=== PATIENT | female | born 1945 | race American Indian/Alaskan Native ===

== ENCOUNTER 2018-01-17 06:22 | Inpatient (IN) | payer MEDICARE ==
[2017-12-21 09:43] VITALS: BMI 26.5
[2018-01-17] MEDS ORDERED: Bupivacaine Liposomal Inj 20 ml INFIL ONE (07:21)
--- NOTE | 2018-01-17 07:27 | CP.PCM.HP ---
History of Present Illness - History of Present Illness History of Present Illness: 73 F with pmhx of hypertension and right hip osteoarthritis who failed conservative management, elected for a right total hip replacement NKDA No hx of PA, stents, blood clots, or bleeding disorders Present on Admission - Present on Admission Any Indicators Present on Admission: No History of DVT/PE: No History of Uncontrolled Diabetes: No Past Patient History - Past Medical History & Family History Past Medical History?: Yes - Past Social History Smoking Status: Never Smoked - CARDIAC Hx Cardiac Disorders: Yes Hx Hypertension: Yes - PULMONARY Hx Respiratory Disorders: No - NEUROLOGICAL Hx Neurological Disorder: No - HEENT Hx HEENT Problems: No - RENAL Hx Chronic Kidney Disease: No - ENDOCRINE/METABOLIC Hx Endocrine Disorders: No - HEMATOLOGICAL/ONCOLOGICAL Hx Blood Disorders: No - INTEGUMENTARY Hx Dermatological Problems: No - MUSCULOSKELETAL/RHEUMATOLOGICAL Hx Musculoskeletal Disorders: Yes Hx Osteoarthritis: Yes - GASTROINTESTINAL Hx Gastrointestinal Disorders: No - GENITOURINARY/GYNECOLOGICAL Hx Genitourinary Disorders: No - PSYCHIATRIC Hx Psychophysiologic Disorder: No - SURGICAL HISTORY Hx Surgeries: No - ANESTHESIA Hx Anesthesia: No Has any member of the family had a problem w/ anesthesia?: No Meds Allergies/Adverse Reactions: Allergies Allergy/AdvReac Type Severity Reaction Status Date / Time No Known Allergies Allergy Verified 12/21/17 09:40 Physical Exam - Constitutional Appears: Well, Non-toxic, No Acute Distress - Head Exam Head Exam: ATRAUMATIC, NORMAL INSPECTION, NORMOCEPHALIC - Neck Exam Neck exam: Positive for: Full Rom, Normal Inspection - Respiratory Exam Respiratory Exam: NORMAL BREATHING PATTERN - Cardiovascular Exam Cardiovascular Exam: RRR - Expanded Lower Extremities Exam Right Hip exam: normal inspection (Calf and thigh are soft and nontender to palpation. NVI distally ) - Neurological Exam Neurological exam: CN II-XII Intact, Normal Gait, Oriented x3 - Psychiatric Exam Psychiatric exam: Normal Affect, Normal Mood - Skin Skin Exam: Dry, Intact, Normal Color, Warm Assessment & Plan (1) Osteoarthritis of right hip Assessment and Plan: NPO T&C OR for Right total hip replacement Patient medically optimized for surgery Risks benefits and alternatives discussed. Patient verbalizes understanding and would like to proceed Status: Acute (2) Hypertension Status: Chronic
[2018-01-17] MEDS ORDERED: Tranexamic Acid 1,000 MG in Sodium Chloride 0.9% 50 ML IV SCH (07:30)
[2018-01-17] MEDS ORDERED: Sodium Chloride 0.9% 1,000 ML IV SCH (07:30)
[2018-01-17] MEDS ORDERED: oxyCODONE 5 mg Immediate Release Tab PO PRN (07:33)
[2018-01-17] MEDS ORDERED: HYDROmorphone 0.5 mg/0.5 ml ISec IVP PRN (07:35)
[2018-01-17] MEDS ORDERED: ceFAZolin IV 1 gm in Dextrose 2 GM/100 ML BAG IVPB ONE (07:51)
[2018-01-17] MEDS ORDERED: Propofol 10 mg/ml Inj (20 ML) ONE (07:52)
[2018-01-17] MEDS ORDERED: Midazolam 2 MG/2 ML VIAL ONE (07:52)
[2018-01-17] MEDS ORDERED: Sodium Chloride 0.9% 60 ML IV ONE (08:52)
[2018-01-17] MEDS: Bacitracin 150,000 UNIT in Sodium Chloride 0.9% Irrig 3,000 ML IR SCH ×4 (09:17→09:26)
[2018-01-17] MEDS ORDERED: Rocuronium 10 mg/ml (5 ml) ONE (09:22)
[2018-01-17] MEDS ORDERED: ePHEDrine 50 mg/ml Inj ONE (09:52)
[2018-01-17] MEDS ORDERED: Succinylcholine Chloride 20 mg/ml Syr (5 ml) IV ONE (09:52)
[2018-01-17] MEDS ORDERED: Vancomycin 1 g Inj ONE (10:12)
[2018-01-17] MEDS ORDERED: Neostigmine Methylsulfate 3mg/3ml Syringe IV ONE (10:43)
--- NOTE | 2018-01-17 10:54 | PCM.SURG1 ---
Surgeon's Initial Post Op Note - Surgeon's Notes Surgeon: Frank Oakley MD Rotor Assembler: Kianna KEVIN, Nataliya KEVIN Type of Anesthesia: General Endo Anesthesia Administered By: Dr. Segura Pre-Operative Diagnosis: right hip DJD Operative Findings: post op +DP/PT pulses Post-Operative Diagnosis: same Operation Performed: right THR Specimen/Specimens Removed: femoral head Estimated Blood Loss: EBL {In ML}: 75 Blood Products Given: N/A Drains Used: No Drains Post-Op Condition: Fair Date of Surgery/Procedure: 01/17/18 Time of Surgery/Procedure: 10:53
[2018-01-17] MEDS: HYDROmorphone 0.5 mg/0.5 ml ISec IVP PRN ×3 (11:49→15:22)
--- NOTE | 2018-01-17 13:55 | RAD ---
Date of service: 01/17/2018 PROCEDURE: HISTORY: s/p THR pt in PACU COMPARISON: None TECHNIQUE: AP pelvis and frog's leg view. FINDINGS: Total right hip arthroplasty status noted. Two screws and superior acetabulum. Acetabular and femoral head and femoral stem components appear well seated well aligned. No hardware failure seen. Inferior lumbar facet hypertrophic arthrosis. Left hip arthrosis. Soft tissue lucencies and skin sutures compatible with recent postop status. IMPRESSION: Status post right total hip arthroplasty-hardware alignment appears anatomical. Hardware appears intact.
[2018-01-17] MEDS ORDERED: Sodium Chloride 0.9% 1,000 ML IV ONE ×2 (16:00→18:00)
[2018-01-17] MEDS: ceFAZolin 2 GM in Sodium Chloride 0.9% 50 ML IVPB SCH ×3 (16:14→23:52)
--- NOTE | 2018-01-17 17:13 | CP.PCM.CON ---
History of Present Illness - History of Present Illness History of Present Illness: Resident Consult Note for Hospitalist Service Patient is a 73 year old female with past medical history of hypertension and osteoarthritis admitted to the hospital for right total hip replacement. Hospitalist service was consulted for medical management. Patient states she had right hip pain that began approximately one year ago, and elected for surgery after failing conservative management with physical therapy. Patient denies pain or any other symptoms at this time. Denies fever, chills, nausea, vomiting, chest pain, shortness of breath, abdominal pain, diarrhea. PMH: hypertension, osteoarthritis PSH: right total hip replacement SHx: denies alcohol, tobacco, illicit drug use. Lives at home alone. Worked as a nurse. FHx: mother (HTN) Allergies: NKDA PMD: Dr. Carmona 12 point ROS was negative except as stated in HPI Review of Systems - Review of Systems All systems: reviewed and no additional remarkable complaints except (as stated in HPI) Past Patient History - Past Medical History & Family History Past Medical History?: Yes - Past Social History Smoking Status: Never Smoked Alcohol: Occasional Drugs: Denies Home Situation {Lives}: Alone - CARDIAC Hx Cardiac Disorders: Yes Hx Hypertension: Yes - PULMONARY Hx Respiratory Disorders: No - NEUROLOGICAL Hx Neurological Disorder: No - HEENT Hx HEENT Problems: No - RENAL Hx Chronic Kidney Disease: No - ENDOCRINE/METABOLIC Hx Endocrine Disorders: No - HEMATOLOGICAL/ONCOLOGICAL Hx Blood Disorders: No - INTEGUMENTARY Hx Dermatological Problems: No - MUSCULOSKELETAL/RHEUMATOLOGICAL Hx Musculoskeletal Disorders: Yes Hx Osteoarthritis: Yes - GASTROINTESTINAL Hx Gastrointestinal Disorders: No - GENITOURINARY/GYNECOLOGICAL Hx Genitourinary Disorders: No - PSYCHIATRIC Hx Psychophysiologic Disorder: No - SURGICAL HISTORY Hx Surgeries: No - ANESTHESIA Hx Anesthesia: No Has any member of the family had a problem w/ anesthesia?: No Meds Allergies/Adverse Reactions: Allergies Allergy/AdvReac Type Severity Reaction Status Date / Time No Known Allergies Allergy Verified 12/21/17 09:40 - Medications Medications: Current Medications Acetaminophen (Tylenol 325mg Tab) 650 mg PO Q6 [facility] Amlodipine Besylate (Norvasc) 5 mg PO DAILY [facility] Apixaban (Eliquis) 2.5 mg PO BID [facility] Docusate Sodium (Colace) 100 mg PO BID [facility] Enalapril Maleate (Vasotec) 20 mg PO DAILY [facility] Hydrochlorothiazide (Hydrodiuril) 25 mg PO DAILY [facility] Hydromorphone HCl (Dilaudid) 0.5 mg IVP Q4H PRN PRN Reason: Pain, severe (8-10) Sodium Chloride (Sodium Chloride 0.9%) 1,000 mls @ 80 mls/hr IV .[id number] [facility] Stop: 01/17/18 19:59 Cefazolin Sodium 2 gm/ Sodium (Chloride) 50 mls @ 100 mls/hr IVPB Q8H [facility] Stop: 01/18/18 00:29 Last Admin: 01/17/18 16:14 Dose: 50 mls Ondansetron HCl (Zofran Inj) 4 mg IVP ONCE PRN PRN Reason: Nausea/Vomiting Oxycodone HCl (Oxycodone Immediate Release Tab) 5 mg PO Q4 PRN PRN Reason: Pain, Mild (1-3) Oxycodone HCl (Oxycodone Immediate Release Tab) 10 mg PO Q4 PRN PRN Reason: Pain, moderate (4-7) Pregabalin (Lyrica) 50 mg PO BID [facility] Sennosides (Senokot Tab) 8.6 mg PO DAILY PRN PRN Reason: Constipation Physical Exam - Constitutional Appears: Non-toxic, No Acute Distress - Head Exam Head Exam: ATRAUMATIC, NORMOCEPHALIC - Eye Exam Eye Exam: EOMI, Normal appearance, PERRL - ENT Exam ENT Exam: Mucous Membranes Moist, Normal Exam - Neck Exam Neck exam: Negative for: Lymphadenopathy, Tenderness, Thyromegaly - Respiratory Exam Respiratory Exam: Clear to Auscultation Bilateral, NORMAL BREATHING PATTERN. absent: Accessory Muscle Use, Decreased Breath Sounds, Rales, Rhonchi, Wheezes, Respiratory Distress, Stridor - Cardiovascular Exam Cardiovascular Exam: REGULAR RHYTHM, +S1, +S2. absent: Systolic Murmur - GI/Abdominal Exam GI & Abdominal Exam: Normal Bowel Sounds, Soft. absent: Distended, Firm, Guarding, Rebound, Rigid, Tenderness - Exam Additional comments: bryan in place - Extremities Exam Extremities exam: Positive for: normal capillary refill, pedal pulses present. Negative for: pedal edema Additional comments: dressing over right hip C/D/I - Neurological Exam Neurological exam: Alert, CN II-XII Intact, Oriented x3 - Psychiatric Exam Psychiatric exam: Normal Affect, Normal Mood - Skin Skin Exam: Dry, Intact, Normal Color, Warm Results - Vital Signs Recent Vital Signs: Last Vital Signs Temp 97.4 F L 01/17/18 15:00 Pulse 90 01/17/18 16:30 Resp 13 01/17/18 16:30 BP 118/52 L 01/17/18 16:30 Pulse Ox 99 01/17/18 16:30 - Labs Labs: Laboratory Results - last 24 hr 01/17/18 08:21 Blood Type B POSITIVE Antibody Screen Negative Assessment & Plan - Assessment and Plan (Free Text) Assessment: Patient is a 73 year old female with past medical history of hypertension and osteoarthritis admitted to the hospital for right total hip replacement. Hospitalist service was consulted for medical management. Plan: s/p right total hip replacement - afebrile, hemodynamically stable - acetaminophen 650 mg PO Q6 - Eliquis 2.5 mg PO BID - Ancef 2 gm Q8H x2 - Colace 100 mg PO BID - Dilaudid 0.5 mg IV Q4H PRN - Oxycodone 10 mg PO Q4 PRn - Lyrica 50 mg PO BID - Senokot 8.6 mg PO daily PRN - Zofran 4 mg IVP PRN - NS 1 L - PT/OT eval - further recs per surgery team HTN - continue home meds - amlodipine 5 mg PO daily - Enalapril 20 mg PO daily - HCTZ 25 mg PO daily PPX - SCDs - Eliquis 2.5 mg PO BID Case discussed with attending Dr. Mae Jose PGY-1 - Date & Time Date: 01/17/18 Time: 17:00
--- NOTE | 2018-01-17 18:56 | OP ---
PROCEDURE DATE: 01/17/2018 PREOPERATIVE DIAGNOSIS: Right hip arthritis. POSTOPERATIVE DIAGNOSIS: Right hip arthritis. PROCEDURE: Right total hip arthroplasty. SURGEON: MD Dr. Adin Cantu was assisted by Dina Gregg, physician child nutrition assistant, and Luc Morris, physician child nutrition assistant. Both physician assistants were scrubbed and present throughout the entire case and assisted in patient positioning, manipulation of the extremity during the procedure, and wound closure. ANESTHESIA: General. ESTIMATED BLOOD LOSS: 75 mL. COMPLICATIONS: None. IMPLANT: Biomet total hip system. INDICATION FOR PROCEDURE: This is a 73-year-old female who presented with longstanding right hip pain. Clinical examination was consistent with pain with weightbearing, pain with passive internal and external rotation, as well as loss of internal rotation. Radiographic examination consistent with advanced degenerative joint disease. After a period of failed nonsurgical management, activity modification, medication, recommendation was for a right total hip arthroplasty. The risks, benefits, and alternatives of the procedure were discussed with the patient, and informed consent was obtained. OPERATIVE PROCEDURE: After surgical site was finally verified in the perioperative holding area, the patient was taken to the operating room and placed supine on the operating table. After administration of general anesthesia, a Crawford catheter was inserted. The patient received 2 g of Ancef IV. The patient was positioned in the lateral decubitus position with the right hip up towards the ceiling. Care was taken to ensure all bony prominences and nerves were well padded and protected. An axillary roll was placed on the left axilla. Venodyne boot was placed on the nonoperative extremity, and the right lower extremity was prepped and draped in the usual sterile fashion. Bony landmarks were identified about the right hip. Approximately 12 cm curvilinear incision was made. Soft tissues dissected sharply down to the fascia, and the fascia was excised. A Charnley retractor was placed, and the short external rotators were identified, tagged, and resected off the proximal femur. T-type capsulotomy was performed, and the hip was dislocated. Based on our preoperative template, our femoral neck resection was done. Femoral head was removed and passed off the field as specimen. At this point, an anterior capsulotomy was performed and satisfied, and once the acetabulum was adequately exposed, the acetabulum was reamed sequentially to allow for a 50-mm Press-Fit cup. Care was taken to maintain proper height and version. A trial cup was inserted and satisfied, and the trial was removed and the hip joint was pulse lavaged with antibiotic saline solution. The bony surfaces were dried, and the actual cup was then impacted into place, again making sure to maintain proper acetabular height and version. At this point, the cup was further fixed using 2 screws in the posterior-superior quadrant. The actual lining was then impacted into place, and attention directed to the proximal femur. The medullary canal of the proximal femur was reamed and broached sequentially to allow for a 6-mm Press-Fit collarless stem. Care was taken to maintain proper femoral version. With the trial stem placed, the calcar was planed, and a trial neck and head was inserted, and the hip was reduced. It was taken through a range of motion and was noted to be stable with approximately equal limb length. At this point, the hip was dislocated and the trial components were removed. The hip was once again pulse lavaged, and the actual stem was then impacted into place, again making sure to maintain proper version. The actual head was then impacted over the stem, and the hip was reduced and again was taken through a range of motion and was noted to be stable to approximately equal limb length. At this point, the hip joint was pulse lavaged with antibiotic saline solution, and our capsule was repaired using #1 Vicryl suture. The short external rotators were also repaired using #1 Vicryl suture. The deep fascia was closed using #1 Vicryl suture. The subcutaneous tissue was closed using 0 Vicryl and 2-0 Vicryl suture, and the skin was closed using temi. A sterile dressing was applied, and an abduction pillow was placed. The patient was transferred supine, awakened, and taken to recovery room in stable condition. Jessee Oakley MD
[2018-01-17] MEDS: oxyCODONE 10 mg Immediate Release Tab PO PRN (20:58)
[2018-01-18] MEDS ORDERED: ceFAZolin 2 GM in Sodium Chloride 0.9% 50 ML IVPB SCH
[2018-01-18 00:59] VITALS: RESP 20
[2018-01-18 06:32] LABS: BASO % 0.4 % (0.0-2.0); HEMOGLOBIN 10.8 g/dL (11.0-16.0); LYMPH # 1.4 K/uL (1.0-4.3); LYMPH % 11.9 % (20.0-40.0); MEAN CELL VOLUME 87.4 fL (81.0-99.0); MEAN CORPUSCULAR HEMOGLOBIN 28.5 pg (27.0-31.0); MEAN CORPUSCULAR HGB CONC 32.5 g/dL (33.0-37.0); MEAN PLATELET VOLUME 7.5 fL (7.2-11.7); MONO # 1.3 K/uL (0.0-0.8); MONO % 11.2 % (0.0-10.0); NEUT # 8.8 K/uL (1.8-7.0); NEUT % 76.5 % (50.0-75.0); NRBC % 0.1 % (0.0-2.0); RBC 3.79 Mil/uL (3.80-5.20); WHITE BLOOD COUNT 11.5 K/uL (4.8-10.8)
[2018-01-18 06:48] LABS: BLOOD UREA NITROGEN 16 mg/dL (7-17); CALCIUM 7.8 mg/dl (8.6-10.4); GFR NON-AFRICAN AMERICAN > 60
--- NOTE | 2018-01-18 07:50 | CP.PCM.PN ---
<Janey Pagan - Last Filed: 01/18/18 17:06> Subjective - Date & Time of Evaluation Date of Evaluation: 01/18/18 Time of Evaluation: 07:50 - Subjective Subjective: PGY-1 Janey Pagan D.O. Medicine progress note for Dr. Wall's service: Patient was seen and examined this morning. She is sitting in a chair at [facility]. She states she has some pain but it is well controlled. She is planning on going to rehab. Denies SKINNER, chest pain, palpitations, SOB. Objective - Vital Signs/Intake and Output Vital Signs (last 24 hours): Temp Pulse Resp BP Pulse Ox 98.2 F 101 H 20 132/67 98 01/18/18 07:00 01/18/18 07:00 01/18/18 07:00 01/18/18 07:00 01/18/18 07:00 Intake and Output: 01/18/18 01/18/18 06:59 18:59 Intake Total 450 Output Total 650 Balance -200 - Medications Medications: Current Medications Acetaminophen (Tylenol 325mg Tab) 650 mg PO Q6 [facility] Last Admin: 01/18/18 06:07 Dose: 650 mg Amlodipine Besylate (Norvasc) 5 mg PO DAILY [facility] Apixaban (Eliquis) 2.5 mg PO BID [facility] Docusate Sodium (Colace) 100 mg PO BID [facility] Last Admin: 01/17/18 18:49 Dose: 100 mg Enalapril Maleate (Vasotec) 20 mg PO DAILY [facility] Hydrochlorothiazide (Hydrodiuril) 25 mg PO DAILY [facility] Hydromorphone HCl (Dilaudid) 0.5 mg IVP Q4H PRN PRN Reason: Pain, severe (8-10) Last Admin: 01/17/18 22:42 Dose: 0.5 mg Ondansetron HCl (Zofran Inj) 4 mg IVP ONCE PRN PRN Reason: Nausea/Vomiting Last Admin: 01/17/18 19:32 Dose: 4 mg Oxycodone HCl (Oxycodone Immediate Release Tab) 5 mg PO Q4 PRN PRN Reason: Pain, Mild (1-3) Oxycodone HCl (Oxycodone Immediate Release Tab) 10 mg PO Q4 PRN PRN Reason: Pain, moderate (4-7) Last Admin: 01/17/18 20:58 Dose: 10 mg Pregabalin (Lyrica) 50 mg PO BID [facility] Last Admin: 01/17/18 18:49 Dose: 50 mg Sennosides (Senokot Tab) 8.6 mg PO DAILY PRN PRN Reason: Constipation - Labs Labs: 01/18/18 06:25 01/18/18 06:25 - Constitutional Appears: No Acute Distress - Head Exam Head Exam: ATRAUMATIC, NORMAL INSPECTION, NORMOCEPHALIC - Eye Exam Eye Exam: EOMI, Normal appearance, PERRL - ENT Exam ENT Exam: Mucous Membranes Moist - Neck Exam Neck Exam: Normal Inspection - Respiratory Exam Respiratory Exam: Clear to Ausculation Bilateral, NORMAL BREATHING PATTERN - Cardiovascular Exam Cardiovascular Exam: REGULAR RHYTHM, +S1, +S2 - GI/Abdominal Exam GI & Abdominal Exam: Soft. absent: Tenderness - Rectal Exam Rectal Exam: Deferred - Extremities Exam Extremities Exam: absent: Pedal Edema Additional comments: s/p total R hip - Neurological Exam Neurological Exam: Alert, Awake, CN II-XII Intact, Oriented x3 - Psychiatric Exam Psychiatric exam: Normal Affect, Normal Mood - Skin Skin Exam: Dry, Normal Color, Warm Assessment and Plan - Assessment and Plan (Free Text) Assessment: Patient is a 73 yo female with history of HTN and OA. She is POD1 total R hip replacement. Hospitalists were consulted for medical management. Plan: Total R hip replacement- POD 1 (01/17) - Management as per ortho, including pain management - Dilaudid 0.5 mg IV Q4H PRN - Oxycodone 5-10 mg PO Q4H PRN - Lyrica 50 mg PO BID - Colace 100 mg PO BID - Senokot 8.6 mg PO daily PRN - Zofran 4 mg IVP PRN - Pending [facility] Hypertension, well controlled on medications - Monitor vitals Q4H - Norvasc 5 mg PO daily - Enalapril 20 mg PO daily - HCTZ 25 mg PO daily Ppx: VTE: Eliquis GI: not indicated Code status: full status Case was discussed with attending, Dr. Wall <Wero Wall - Last Filed: 01/20/18 19:42> Objective - Vital Signs/Intake and Output Vital Signs (last 24 hours): Temp Pulse Resp BP Pulse Ox 98.9 F 101 H 20 112/65 97 01/20/18 08:29 01/20/18 07:00 01/20/18 07:00 01/20/18 07:00 01/20/18 07:00 - Labs Labs: 01/20/18 06:18 01/19/18 07:06 Attending/Attestation - Attestation I have personally seen and examined this patient.: Yes I have fully participated in the care of the patient.: Yes I have reviewed all pertinent clinical information, including history, physical exam and plan: Yes Notes (Text): Seen and examined ,patient has no complain continue PT and pending discharge to rehab
--- NOTE | 2018-01-18 09:11 | CP.PCM.PN ---
Subjective - Date & Time of Evaluation Date of Evaluation: 01/18/18 Time of Evaluation: 09:07 - Subjective Subjective: Patient seen and examined. Alert and awake. Denies any significant pain. Denies any chest pain, numbness tingling or SOB. Using incentive spirometer. Hip abduction pillow on. Afebrile WBC 11.5 Hgb 10.8 Objective - Vital Signs/Intake and Output Vital Signs (last 24 hours): Temp Pulse Resp BP Pulse Ox 98.2 F 101 H 20 132/67 98 01/18/18 07:00 01/18/18 07:00 01/18/18 07:00 01/18/18 07:00 01/18/18 07:00 Intake and Output: 01/18/18 01/18/18 06:59 18:59 Intake Total 450 Output Total 650 Balance -200 - Medications Medications: Current Medications Acetaminophen (Tylenol 325mg Tab) 650 mg PO Q6 [facility] Last Admin: 01/18/18 06:07 Dose: 650 mg Amlodipine Besylate (Norvasc) 5 mg PO DAILY [facility] Apixaban (Eliquis) 2.5 mg PO BID [facility] Docusate Sodium (Colace) 100 mg PO BID [facility] Last Admin: 01/17/18 18:49 Dose: 100 mg Enalapril Maleate (Vasotec) 20 mg PO DAILY [facility] Hydrochlorothiazide (Hydrodiuril) 25 mg PO DAILY [facility] Hydromorphone HCl (Dilaudid) 0.5 mg IVP Q4H PRN PRN Reason: Pain, severe (8-10) Last Admin: 01/17/18 22:42 Dose: 0.5 mg Ondansetron HCl (Zofran Inj) 4 mg IVP ONCE PRN PRN Reason: Nausea/Vomiting Last Admin: 01/17/18 19:32 Dose: 4 mg Oxycodone HCl (Oxycodone Immediate Release Tab) 5 mg PO Q4 PRN PRN Reason: Pain, Mild (1-3) Oxycodone HCl (Oxycodone Immediate Release Tab) 10 mg PO Q4 PRN PRN Reason: Pain, moderate (4-7) Last Admin: 01/17/18 20:58 Dose: 10 mg Pregabalin (Lyrica) 50 mg PO BID [facility] Last Admin: 01/17/18 18:49 Dose: 50 mg Sennosides (Senokot Tab) 8.6 mg PO DAILY PRN PRN Reason: Constipation - Labs Labs: 01/18/18 06:25 01/18/18 06:25 - Extremities Exam Additional comments: On examination of the right hip, dressings clean dry and intact. Hip abduction pillow on. +AROM foot and ankle. Sensation intact to light touch. Calf and thigh are soft and nontender to palpation. NVI distally Assessment and Plan (1) Osteoarthritis of right hip Assessment & Plan: POD# 1 s/p R SUREKHA Cont DVT prophylaxis Cont PT Cont incentive spirometer cont pain control Cont hip abduction pillow Discharge planning to [facility] tomorrow Dressing changes tomorrow Discussed above with Dr. Oakley, agrees with above Status: Acute (2) Hypertension Status: Chronic
[2018-01-18] MEDS: oxyCODONE 10 mg Immediate Release Tab PO PRN (09:23)
[2018-01-19] MEDS: oxyCODONE 10 mg Immediate Release Tab PO PRN ×2 (01:03→09:11)
[2018-01-19 07:15] LABS: BASO % 0.3 % (0.0-2.0); EOS % 0.4 % (0.0-4.0); HEMOGLOBIN 10.9 g/dL (11.0-16.0); LYMPH # 1.5 K/uL (1.0-4.3); LYMPH % 14.6 % (20.0-40.0); MEAN CELL VOLUME 88.9 fL (81.0-99.0); MEAN CORPUSCULAR HEMOGLOBIN 30.1 pg (27.0-31.0); MEAN CORPUSCULAR HGB CONC 33.9 g/dL (33.0-37.0); MEAN PLATELET VOLUME 7.9 fL (7.2-11.7); MONO # 1.2 K/uL (0.0-0.8); MONO % 11.8 % (0.0-10.0); NEUT # 7.5 K/uL (1.8-7.0); NEUT % 72.9 % (50.0-75.0); RBC 3.61 Mil/uL (3.80-5.20); RED CELL DISTRIBUTION WIDTH 14.2 % (11.5-14.5); WHITE BLOOD COUNT 10.3 K/uL (4.8-10.8)
[2018-01-19 07:31] LABS: ALBUMIN 3.3 g/dL (3.5-5.0); ALT/SGPT 26 U/L (9-52); AST/SGOT 37 U/L (14-36); BLOOD UREA NITROGEN 16 mg/dL (7-17); CALCIUM 8.4 mg/dl (8.6-10.4); GFR NON-AFRICAN AMERICAN 54
--- NOTE | 2018-01-19 07:36 | CP.PCM.PN ---
Subjective - Date & Time of Evaluation Date of Evaluation: 01/19/18 Time of Evaluation: 07:31 - Subjective Subjective: Patient seen and examined. States she is doing well with therapy.Denies any significant pain, numbness or tingling. Denies any CP/SOB Objective - Vital Signs/Intake and Output Vital Signs (last 24 hours): Temp Pulse Resp BP Pulse Ox 99 F 96 H 20 114/72 98 01/19/18 04:21 01/19/18 04:21 01/19/18 04:21 01/19/18 04:21 01/19/18 04:21 - Medications Medications: Current Medications Acetaminophen (Tylenol 325mg Tab) 650 mg PO Q6 [facility] Last Admin: 01/19/18 05:47 Dose: Not Given Amlodipine Besylate (Norvasc) 5 mg PO DAILY [facility] Last Admin: 01/18/18 10:04 Dose: 5 mg Apixaban (Eliquis) 2.5 mg PO BID [facility] Last Admin: 01/18/18 17:16 Dose: 2.5 mg Docusate Sodium (Colace) 100 mg PO BID [facility] Last Admin: 01/18/18 17:16 Dose: 100 mg Enalapril Maleate (Vasotec) 20 mg PO DAILY [facility] Last Admin: 01/18/18 10:04 Dose: 20 mg Hydrochlorothiazide (Hydrodiuril) 25 mg PO DAILY [facility] Last Admin: 01/18/18 10:05 Dose: 25 mg Hydromorphone HCl (Dilaudid) 0.5 mg IVP Q4H PRN PRN Reason: Pain, severe (8-10) Last Admin: 01/17/18 22:42 Dose: 0.5 mg Influenza Virus Vaccine (Fluzone Quad [id number]) 60 mcg IM .ONCE ONE Stop: 01/19/18 12:01 Ondansetron HCl (Zofran Inj) 4 mg IVP ONCE PRN PRN Reason: Nausea/Vomiting Last Admin: 01/17/18 19:32 Dose: 4 mg Oxycodone HCl (Oxycodone Immediate Release Tab) 5 mg PO Q4 PRN PRN Reason: Pain, Mild (1-3) Oxycodone HCl (Oxycodone Immediate Release Tab) 10 mg PO Q4 PRN PRN Reason: Pain, moderate (4-7) Last Admin: 01/19/18 01:03 Dose: 10 mg Pregabalin (Lyrica) 50 mg PO BID [facility] Last Admin: 01/18/18 17:18 Dose: 50 mg Sennosides (Senokot Tab) 8.6 mg PO DAILY PRN PRN Reason: Constipation - Labs Labs: 01/19/18 07:06 01/19/18 07:06 - Extremities Exam Additional comments: R hip: dressings changed. Incision clean, intact and dry. No erythema or drainage. Ofelia intact. No signs of cellulitis. Incision clean and new dressings applied. Thigh and calf soft and nontender to palpation. +AROM foot and ankle. Sensation intact to light touch. NVI distally Assessment and Plan (1) Osteoarthritis of right hip Assessment & Plan: POD#2 s/p R SUREKHA Cont DVT prophylaxis Cont PT Cont incentive spirometer Discharge to rehab today ok, if authorization obtained for [facility] Will see patient in [address] Oakley's office for follow up Discussed above with Dr. Oakley, agrees with above Status: Acute (2) Hypertension Status: Chronic
[2018-01-19] MEDS ORDERED: Influenza Vaccine 60 MCG/0.5 ML SYR (3 yr & up) IM ONE (12:00)
--- NOTE | 2018-01-19 13:06 | CP.PCM.PN ---
<José Perez - Last Filed: 01/19/18 14:06> Subjective - Date & Time of Evaluation Date of Evaluation: 01/19/18 Time of Evaluation: 13:51 - Subjective Subjective: PGY-[address] Wall Patient seen and examined at bedside, sitting in elevated chair. Patient states having some pain, but just received pain meds. Patient agreeable for d/c to [facility]. Patient has no other complaints including chest pain, headache, nausea, vomiting. Discharge per ortho, pending [facility] placement. Objective - Vital Signs/Intake and Output Vital Signs (last 24 hours): Temp Pulse Resp BP Pulse Ox 98.8 F 102 H 20 133/62 97 01/19/18 07:05 01/19/18 07:05 01/19/18 07:05 01/19/18 09:10 01/19/18 07:05 - Medications Medications: Current Medications Acetaminophen (Tylenol 325mg Tab) 650 mg PO Q6 [facility] Last Admin: 01/19/18 11:49 Dose: Not Given Amlodipine Besylate (Norvasc) 5 mg PO DAILY [facility] Last Admin: 01/19/18 09:14 Dose: 5 mg Apixaban (Eliquis) 2.5 mg PO BID [facility] Last Admin: 01/19/18 09:14 Dose: 2.5 mg Docusate Sodium (Colace) 100 mg PO BID [facility] Last Admin: 01/19/18 09:11 Dose: 100 mg Enalapril Maleate (Vasotec) 20 mg PO DAILY [facility] Last Admin: 01/19/18 09:10 Dose: 20 mg Hydrochlorothiazide (Hydrodiuril) 25 mg PO DAILY [facility] Last Admin: 01/19/18 09:11 Dose: 25 mg Hydromorphone HCl (Dilaudid) 0.5 mg IVP Q4H PRN PRN Reason: Pain, severe (8-10) Last Admin: 01/17/18 22:42 Dose: 0.5 mg Ondansetron HCl (Zofran Inj) 4 mg IVP ONCE PRN PRN Reason: Nausea/Vomiting Last Admin: 01/17/18 19:32 Dose: 4 mg Oxycodone HCl (Oxycodone Immediate Release Tab) 5 mg PO Q4 PRN PRN Reason: Pain, Mild (1-3) Oxycodone HCl (Oxycodone Immediate Release Tab) 10 mg PO Q4 PRN PRN Reason: Pain, moderate (4-7) Last Admin: 01/19/18 09:11 Dose: 10 mg Pregabalin (Lyrica) 50 mg PO BID [facility] Last Admin: 01/19/18 09:14 Dose: 50 mg Sennosides (Senokot Tab) 8.6 mg PO DAILY PRN PRN Reason: Constipation - Labs Labs: 01/19/18 07:06 01/19/18 07:06 - Constitutional Appears: Non-toxic, No Acute Distress - Head Exam Head Exam: ATRAUMATIC, NORMAL INSPECTION - Eye Exam Eye Exam: EOMI - ENT Exam ENT Exam: Mucous Membranes Moist - Respiratory Exam Respiratory Exam: Clear to Ausculation Bilateral. absent: Rhonchi, Wheezes - Cardiovascular Exam Cardiovascular Exam: RRR, +S1, +S2 - GI/Abdominal Exam GI & Abdominal Exam: Soft, Normal Bowel Sounds. absent: Tenderness - Extremities Exam Extremities Exam: absent: Pedal Edema Additional comments: s/p total R hip replacement, in hip abduction pillow - Neurological Exam Neurological Exam: Alert, Awake, Oriented x3 - Psychiatric Exam Psychiatric exam: Normal Affect, Normal Mood - Skin Skin Exam: Dry, Intact, Normal Color, Warm Assessment and Plan - Assessment and Plan (Free Text) Assessment: Patient is a 73 yo female with history of HTN and OA. She is POD 2 total R hip replacement. Hospitalists were consulted for medical management. Plan: Total R hip replacement- POD 1 (01/17) - Management as per ortho, including pain management - Dilaudid 0.5 mg IV Q4H PRN - Oxycodone 5-10 mg PO Q4H PRN - Lyrica 50 mg PO BID - Colace 100 mg PO BID - Senokot 8.6 mg PO daily PRN - Zofran 4 mg IVP PRN - Per Ortho, patient will be discharged pending [facility] placement Hypertension, well controlled on medications - Monitor vitals Q4H - Norvasc 5 mg PO daily - Enalapril 20 mg PO daily - HCTZ 25 mg PO daily Ppx: VTE: Eliquis GI: not indicated Code status: full status Case was discussed with attending, Dr. Mae Perez, PGY-1 <Wero Wall - Last Filed: 01/20/18 19:35> Objective - Vital Signs/Intake and Output Vital Signs (last 24 hours): Temp Pulse Resp BP Pulse Ox 98.9 F 101 H 20 112/65 97 01/20/18 08:29 01/20/18 07:00 01/20/18 07:00 01/20/18 07:00 01/20/18 07:00 - Labs Labs: 01/20/18 06:18 01/19/18 07:06 Attending/Attestation - Attestation I have personally seen and examined this patient.: Yes I have fully participated in the care of the patient.: Yes I have reviewed all pertinent clinical information, including history, physical exam and plan: Yes Notes (Text): no complain Pending rehab discussed with the resident and I agree with the documentation
[2018-01-20 01:05] VITALS: O2SAT 97
[2018-01-20] MEDS: oxyCODONE 10 mg Immediate Release Tab PO PRN ×2 (04:46→09:19)
[2018-01-20 06:36] LABS: BASO % 0.2 % (0.0-2.0); EOS # 0.1 K/uL (0.0-0.7); EOS % 0.5 % (0.0-4.0); HEMOGLOBIN 9.7 g/dL (11.0-16.0); LYMPH # 1.1 K/uL (1.0-4.3); LYMPH % 10.4 % (20.0-40.0); MEAN CELL VOLUME 87.5 fL (81.0-99.0); MEAN CORPUSCULAR HEMOGLOBIN 29.4 pg (27.0-31.0); MEAN CORPUSCULAR HGB CONC 33.6 g/dL (33.0-37.0); MEAN PLATELET VOLUME 7.8 fL (7.2-11.7); MONO # 1.2 K/uL (0.0-0.8); MONO % 11.3 % (0.0-10.0); NEUT # 8.2 K/uL (1.8-7.0); NEUT % 77.6 % (50.0-75.0); RBC 3.3 Mil/uL (3.80-5.20); RED CELL DISTRIBUTION WIDTH 13.8 % (11.5-14.5); WHITE BLOOD COUNT 10.6 K/uL (4.8-10.8)
[2018-01-20 07:56] VITALS: BP 112/65; PULSE 101
[2018-01-20 08:30] VITALS: TEMP 98.9
--- NOTE | 2018-01-20 09:17 | CP.PCM.PN ---
Subjective - Date & Time of Evaluation Date of Evaluation: 01/20/18 Time of Evaluation: 09:13 - Subjective Subjective: Patient still complaining of pain in hip, improving. Denies CP/SOB/dizziness/numbness/tingling. Objective - Vital Signs/Intake and Output Vital Signs (last 24 hours): Temp Pulse Resp BP Pulse Ox 98.9 F 101 H 20 112/65 97 01/20/18 08:29 01/20/18 07:00 01/20/18 07:00 01/20/18 07:00 01/20/18 07:00 - Medications Medications: Current Medications Acetaminophen (Tylenol 325mg Tab) 650 mg PO Q6 [facility] Last Admin: 01/20/18 06:12 Dose: Not Given Amlodipine Besylate (Norvasc) 5 mg PO DAILY [facility] Last Admin: 01/19/18 09:14 Dose: 5 mg Apixaban (Eliquis) 2.5 mg PO BID [facility] Last Admin: 01/19/18 17:29 Dose: 2.5 mg Docusate Sodium (Colace) 100 mg PO BID [facility] Last Admin: 01/19/18 17:29 Dose: 100 mg Enalapril Maleate (Vasotec) 20 mg PO DAILY [facility] Last Admin: 01/19/18 09:10 Dose: 20 mg Hydrochlorothiazide (Hydrodiuril) 25 mg PO DAILY [facility] Last Admin: 01/19/18 09:11 Dose: 25 mg Hydromorphone HCl (Dilaudid) 0.5 mg IVP Q4H PRN PRN Reason: Pain, severe (8-10) Last Admin: 01/17/18 22:42 Dose: 0.5 mg Ondansetron HCl (Zofran Inj) 4 mg IVP ONCE PRN PRN Reason: Nausea/Vomiting Last Admin: 01/17/18 19:32 Dose: 4 mg Oxycodone HCl (Oxycodone Immediate Release Tab) 5 mg PO Q4 PRN PRN Reason: Pain, Mild (1-3) Oxycodone HCl (Oxycodone Immediate Release Tab) 10 mg PO Q4 PRN PRN Reason: Pain, moderate (4-7) Last Admin: 01/20/18 04:46 Dose: 10 mg Pregabalin (Lyrica) 50 mg PO BID [facility] Last Admin: 01/19/18 17:28 Dose: 50 mg Sennosides (Senokot Tab) 8.6 mg PO DAILY PRN PRN Reason: Constipation - Labs Labs: 01/20/18 06:18 01/19/18 07:06 - Extremities Exam Additional comments: Right hip: dressing change, scant serous drainage, incision intct, no erythema, mild thigh swelling, +ROM ankel/toes, sensation intaat +DP/PT pulses calves soft NT neg hoamns, abduction pillow intact. Assessment and Plan (1) Osteoarthritis of right hip Assessment & Plan: POD#3 s/p right total hip replacement -d/c to [facility] -f/u 7-10d call for appt [phone] -cont eliquis -cont home meds -post hip precautions -PT/OT -d/w Dr. Oakley, agrees with above Status: Acute (2) Hypertension Status: Chronic (3) Acute blood loss anemia Assessment & Plan: VSS Status: Acute
--- NOTE | 2018-01-20 09:22 | CP.PCM.DIS ---
Provider - Provider Date of Admission: 01/17/18 06:22 Attending physician: Jessee Oakley MD Primary care physician: Dr. Alexander Carmona Consults: 01/17/18 07:27 Case Management Referral Routine Comment: Physician Instructions: Reason For Exam: Reason for Referral: Discharge Planning 01/17/18 14:33 Physician Consult Routine Comment: Consulting Provider: Wero Wall Consulting Physician: Wero Wall Reason for Consult: post op medical mgmt Time Spent in preparation of Discharge (in minutes): 5 Diagnosis - Discharge Diagnosis (1) Osteoarthritis of right hip Status: Acute (2) Hypertension Status: Chronic (3) Acute blood loss anemia Status: Acute Hospital Course - Lab Results Lab Results: Most Recent Lab Values WBC 10.6 K/uL (4.8-10.8) 01/20/18 06:18 RBC 3.30 Mil/uL (3.80-5.20) L 01/20/18 06:18 Hgb 9.7 g/dL (11.0-16.0) L 01/20/18 06:18 Hct 28.9 % (34.0-47.0) L 01/20/18 06:18 MCV 87.5 fL (81.0-99.0) 01/20/18 06:18 MCH 29.4 pg (27.0-31.0) 01/20/18 06:18 MCHC 33.6 g/dL (33.0-37.0) 01/20/18 06:18 RDW 13.8 % (11.5-14.5) 01/20/18 06:18 Plt Count 197 K/uL (130-400) 01/20/18 06:18 MPV 7.8 fL (7.2-11.7) 01/20/18 06:18 Neut % (Auto) 77.6 % (50.0-75.0) H 01/20/18 06:18 Lymph % (Auto) 10.4 % (20.0-40.0) L 01/20/18 06:18 [place]mer % (Auto) 11.3 % (0.0-10.0) H 01/20/18 06:18 Eos % (Auto) 0.5 % (0.0-4.0) 01/20/18 06:18 Baso % (Auto) 0.2 % (0.0-2.0) 01/20/18 06:18 Neut # (Auto) 8.2 K/uL (1.8-7.0) H 01/20/18 06:18 Lymph # (Auto) 1.1 K/uL (1.0-4.3) 01/20/18 06:18 Gilmer # (Auto) 1.2 K/uL (0.0-0.8) H 01/20/18 06:18 Eos # (Auto) 0.1 K/uL (0.0-0.7) 01/20/18 06:18 Baso # (Auto) 0.0 K/uL (0.0-0.2) 01/20/18 06:18 Sodium 135 mmol/L (132-148) 01/19/18 07:06 Potassium 3.9 mmol/L (3.6-5.2) 01/19/18 07:06 Chloride 97 mmol/L (98-107) L 01/19/18 07:06 Carbon Dioxide 29 mmol/L (22-30) 01/19/18 07:06 Anion Gap 12 (10-20) 01/19/18 07:06 BUN 16 mg/dL (7-17) 01/19/18 07:06 Creatinine 1.0 mg/dL (0.7-1.2) 01/19/18 07:06 Est GFR ( Amer) > 60 01/19/18 07:06 Est GFR (Non-Af Amer) 54 01/19/18 07:06 Random Glucose 106 mg/dL (65-105) H 01/19/18 07:06 Calcium 8.4 mg/dl (8.6-10.4) L 01/19/18 07:06 Phosphorus 3.0 mg/dL (2.5-4.5) 01/19/18 07:06 Magnesium 2.0 mg/dL (1.6-2.3) 01/19/18 07:06 Total Bilirubin 0.6 mg/dL (0.2-1.3) 01/19/18 07:06 AST 37 U/L (14-36) H 01/19/18 07:06 ALT 26 U/L (9-52) 01/19/18 07:06 Alkaline Phosphatase 63 U/L (38-126) 01/19/18 07:06 Total Protein 6.7 g/dL (6.3-8.3) 01/19/18 07:06 Albumin 3.3 g/dL (3.5-5.0) L 01/19/18 07:06 Globulin 3.4 gm/dL (2.2-3.9) 01/19/18 07:06 Albumin/Globulin Ratio 1.0 (1.0-2.1) 01/19/18 07:06 Blood Type B POSITIVE 01/17/18 08:21 Antibody Screen Negative 01/17/18 08:21 - Hospital Course Hospital Course: 73F with PMH: HTN with right hip osteoarthritis failed conservative management and elected for THR. Postoperative imaging demonstrated acceptable position of prosthesis. Medical consultation was requested for post operative medical management. HTN controlled throughout admission. Patients post operative course was complicated by acute blood loss anemia, hemodynamically stable and well tolerated, no treatment needed. Patient tolerated PT/OT well. Patient received VTE prophylaxis in the form of eliquis 2.5mg PO BID and venodynes. Patient also instructed to continue with hip abduction pillow and posterior hip precautions. PT was discharged to rehab, and continued on home medication as well as the eliquis. Patient was WBAT LLE, ambulating with walker, and given instructions for daily dressing changes and to f/u Dr. Oakley within 10 days. Discharge Exam - Head Exam Head Exam: ATRAUMATIC, NORMAL INSPECTION Discharge Plan - Follow Up Plan Condition: GOOD Disposition: REHAB FACILITY/REHAB UNIT Referrals: Jessee Oakley MD [Staff Provider] - 01/30/18 (cont posterior hip precautions dressing change right hip daily hip abduction pillow in bed f/u 01/30 call for appt cont meds as directed)
--- NOTE | 2018-01-20 10:37 | CP.PCM.PN ---
<José Perez - Last Filed: 01/20/18 10:43> Subjective - Date & Time of Evaluation Date of Evaluation: 01/20/18 Time of Evaluation: 10:45 - Subjective Subjective: PGY-[address] Wall Patient seen and examined at bedside prior to discharge. Patient has no acute complaints at this time. Patient states only mild pain at surgical site, but overall pain is improved. Patient is agreeable to discharge to rehab facility. Patient denies fevers, chills, fatigue, nausea, vomiting, chest pain, headache, dizziness. Objective - Vital Signs/Intake and Output Vital Signs (last 24 hours): Temp Pulse Resp BP Pulse Ox 98.9 F 101 H 20 112/65 97 01/20/18 08:29 01/20/18 07:00 01/20/18 07:00 01/20/18 07:00 01/20/18 07:00 - Medications Medications: Current Medications Acetaminophen (Tylenol 325mg Tab) 650 mg PO Q6 [facility] Last Admin: 01/20/18 06:12 Dose: Not Given Amlodipine Besylate (Norvasc) 5 mg PO DAILY [facility] Last Admin: 01/20/18 09:19 Dose: 5 mg Apixaban (Eliquis) 2.5 mg PO BID [facility] Last Admin: 01/20/18 09:19 Dose: 2.5 mg Docusate Sodium (Colace) 100 mg PO BID [facility] Last Admin: 01/20/18 09:18 Dose: 100 mg Enalapril Maleate (Vasotec) 20 mg PO DAILY [facility] Last Admin: 01/19/18 09:10 Dose: 20 mg Hydrochlorothiazide (Hydrodiuril) 25 mg PO DAILY [facility] Last Admin: 01/20/18 09:19 Dose: 25 mg Hydromorphone HCl (Dilaudid) 0.5 mg IVP Q4H PRN PRN Reason: Pain, severe (8-10) Last Admin: 01/17/18 22:42 Dose: 0.5 mg Ondansetron HCl (Zofran Inj) 4 mg IVP ONCE PRN PRN Reason: Nausea/Vomiting Last Admin: 01/17/18 19:32 Dose: 4 mg Oxycodone HCl (Oxycodone Immediate Release Tab) 5 mg PO Q4 PRN PRN Reason: Pain, Mild (1-3) Oxycodone HCl (Oxycodone Immediate Release Tab) 10 mg PO Q4 PRN PRN Reason: Pain, moderate (4-7) Last Admin: 01/20/18 09:19 Dose: 10 mg Pregabalin (Lyrica) 50 mg PO BID [facility] Last Admin: 01/20/18 09:19 Dose: 50 mg Sennosides (Senokot Tab) 8.6 mg PO DAILY PRN PRN Reason: Constipation Last Admin: 01/20/18 09:19 Dose: 8.6 mg - Labs Labs: 01/20/18 06:18 18 07:06 - Constitutional Appears: Non-toxic, No Acute Distress - Head Exam Head Exam: ATRAUMATIC, NORMAL INSPECTION - Eye Exam Eye Exam: EOMI, Normal appearance - ENT Exam ENT Exam: Mucous Membranes Moist - Respiratory Exam Respiratory Exam: Clear to Ausculation Bilateral, NORMAL BREATHING PATTERN. absent: Rales, Rhonchi, Wheezes - Cardiovascular Exam Cardiovascular Exam: REGULAR RHYTHM, +S1, +S2 - GI/Abdominal Exam GI & Abdominal Exam: Soft, Normal Bowel Sounds. absent: Tenderness - Extremities Exam Additional comments: Dressings CDI LL - Neurological Exam Neurological Exam: Alert, Awake, CN II-XII Intact, Oriented x3 - Psychiatric Exam Psychiatric exam: Normal Affect, Normal Mood - Skin Skin Exam: Dry, Intact, Normal Color, Warm Assessment and Plan - Assessment and Plan (Free Text) Assessment: Patient is a 73 yo female with history of HTN and OA. She is POD 3 total R hip replacement. Hospitalists were consulted for medical management. Plan: Total R hip replacement- POD 1 (01/17) - Management as per ortho, including pain management - Dilaudid 0.5 mg IV Q4H PRN - Oxycodone 5-10 mg PO Q4H PRN - Lyrica 50 mg PO BID - Colace 100 mg PO BID - Senokot 8.6 mg PO daily PRN - Zofran 4 mg IVP PRN - Patient discharged today to rehab facility Hypertension, well controlled on medications - Monitor vitals Q4H - Norvasc 5 mg PO daily - Enalapril 20 mg PO daily - HCTZ 25 mg PO daily Ppx: VTE: Eliquis GI: not indicated Code status: full status Case was discussed with attending, Dr. Mae Perez, PGY-1 <Wero Wall - Last Filed: 01/20/18 18:28> Objective - Vital Signs/Intake and Output Vital Signs (last 24 hours): Temp Pulse Resp BP Pulse Ox 98.9 F 101 H 20 112/65 97 01/20/18 08:29 01/20/18 07:00 01/20/18 07:00 01/20/18 07:00 01/20/18 07:00 - Labs Labs: 01/20/18 06:18 01/19/18 07:06 Attending/Attestation - Attestation I have personally seen and examined this patient.: No I have fully participated in the care of the patient.: Yes I have reviewed all pertinent clinical information, including history, physical exam and plan: Yes
== END 2018-01-20 13:34 | DRG 470 ==
LOC: C.9S 06:22 → EDSTATUS 07:45 → C.6T 18:26
PROVIDERS: ADMIT Orthopaedic Surgery; ATTEND Orthopaedic Surgery
PROC: 0SR90JZ Replacement of Right Hip Joint with Synthetic Substitute, Open Approach (ICD-10-PCS; principal; 2018-01-17 07:30)
DX: M16.11 Unilateral primary osteoarthritis, right hip (principal); D62 Acute posthemorrhagic anemia; I10 Essential (primary) hypertension